=== PATIENT | male | born 1995 | race Caucasian/White ===

== ENCOUNTER 2017-10-18 11:23 | Emergency (ER) | payer SELFPAY ==
[~2017-10-18] VITALS: Ht 160 cm; Wt 69.0 kg
[2017-10-18] MEDS ORDERED: CYCLOBENZAPRINE 10MG TABLET PO ONE (13:00)
[2017-10-18] MEDS ORDERED: KETOROLAC 60MG/2ML VIAL IM ONE (13:00)
[2017-10-18 13:57] VITALS: BP 136/92
== END 2017-10-18 13:59 | disposition home or self-care (01) ==
LOC: ER 11:43
DX: M43.6 Torticollis (principal)
CPT/HCPCS: 96372; 99283; J1885